=== PATIENT | male | born 2000 | race Caucasian/White ===

== ENCOUNTER 2021-01-20 18:47 | Emergency (ER) | payer MEDICAID, SELFPAY ==
[2021-01-20 18:48] VITALS: BP 123/76; PULSE 85; RESP 16; TEMP 36.4; O2SAT 99; BMI 23.4
--- NOTE | 2021-01-20 19:24 | ED.RN ---
PATIENT LEFT WITHOUT BEING SEEN, STATES HE WILL GO TO URGENT CARE.
== END 2021-01-20 19:20 | disposition left against medical advice (07) ==
LOC: ED 19:42
PROVIDERS: PCP Pediatrics
DX: R69 Illness, unspecified (principal); Z53.21 Procedure and treatment not carried out due to patient leaving prior to being seen by health care provider